=== PATIENT | female | born 1945 | race Caucasian/White ===

== ENCOUNTER → 2017-02-20 | Day surgery (SDC) | payer BC, MEDICARE ==
[~2017-02-20] MED LIST: ASCO100020 PO; CHOL10003 PO; CYAN10005 PO; DULO60CA6 PO; FOLI1TAB16 PO; HYDROmorphone 2 MG/ML VIAL IV PRN; IV RINGERS,LACTATED 1000ML 1,000 ML IV SCH; LEVO50TA PO; LIDOCAINE 1% PF 2 ML VIAL. ID PRN; LIDOCAINE 2% PF Vial for OR 5 ML VIAL. ONE; MAGN400T3 PO; MORPHINE SULFATE 2 MG/ML DISP.SYRIN. IV PRN; MULT-208 PO; NORT25CA PO; ONDA8TAB9 PO; ONDANSETRON PF 4 MG/2 ML VIAL. IV PRN; OXYC10TA45 PO; PITA4TAB2 PO; PROCHLORPERAZINE 10 MG/2 ML VIAL. IV PRN; PROPOFOL 40 ML IV ONE; TRAM50TA PO; fentaNYL PF VIAL 100 MCG/2 ML VIAL IV PRN
[2017-02-20 17:57] VITALS: BP 120/76
--- NOTE | 2017-02-21 00:20 | HP ---
ADMIT DATE: 02/20/2017 REASON FOR FOLLOWUP: History of colon polyps and a positive Cologuard test. HISTORY OF PRESENT ILLNESS: This is a 71-year-old female with past medical history significant for hypothyroidism, hypertension, history of colonic polyps as well as recently treated lung cancer with chemoradiation and surgery, who is seen for interval colonoscopy. Cologuard was positive. She denies any change in bowel habits, any bleeding, diarrhea or constipation. Weight and appetite have been stable. She has, otherwise, no additional complaints and family history is unrevealing for colon cancer. PAST MEDICAL HISTORY: Hypothyroidism, lung cancer, hypertension, history of colonic polyps as well as hyperlipidemia. MEDICATIONS: Include ascorbic acid, vitamin D, vitamin B12, levothyroxine, magnesium, multivitamin and Livalo. FAMILY AND SOCIAL HISTORY: Former smoker, not a drinker. PAST SURGICAL HISTORY: Status post appendectomy, hysterectomy and partial lobectomy. REVIEW OF SYSTEMS: Per records. PHYSICAL EXAMINATION: GENERAL: Reveals a well-nourished, well-developed female. VITAL SIGNS: Temperature is 97.9, pulse 95 and respiratory rate 20. HEENT EXAMINATION: Normocephalic and atraumatic head. Pupils and extraocular movements are not tested. Sclerae anicteric. NECK: Supple. LUNGS: Clear. CARDIOVASCULAR EXAMINATION: Reveals S1, S2, without S3, S4 or appreciable murmur. ABDOMEN: Exam reveals soft abdomen, normal bowel sounds, without appreciable splenomegaly. EXTREMITIES: Exam reveals no cyanosis, clubbing or edema. IMPRESSION: History of colon polyps. Surveillance exam with positive Cologuard is recommended at this time. Risks and benefits of the procedure including risk of hemorrhage or perforation have been discussed with the patient who is willing to proceed. ROC NEFF MD DR: ANTHONY/andressa JOB#: [id number] / [id number]
--- NOTE | 2017-02-23 15:00 | PATHOLOGY ---
PATHOLOGY REPORT * * * * * * * * FINAL DIAGNOSIS: Colon biopsy, ascending colon polyp: - Hyperplastic polyp. - Two hyperplastic mucosal-associated lymphoid aggregates. COMMENT: There are no adenomatous changes or evidence of malignancy. (JPM:pit; 02/23/2017) REPORT ELECTRONICALLY SIGNED BY: Sajan Dumont M.D. DATE/TIME: 02/23/2017 14:59 * * * * * * * * GROSS PATHOLOGY: Received in formalin labeled "Alexa Mcfarland, ascending colon," are 2 segments of samuel soft tissue measuring 0.6 x 0.7 x 0.3 cm in aggregate dimensions and ranging from 0.5 to 0.6 cm in maximum dimension. The specimen is submitted entirely in cassette A1. (TSD; 02/21/2017) INITIAL CPT CODE(S): A; 17627 Professional services performed [place] [facility] [address] Technical services performed by [facility] at [address] [place] [address], [place] [address] [address]. SPECIMEN(S) RECEIVED: A.Ascending colon polyp CLINICAL HISTORY: History of colon polyps PATIENT: ALEXA MCFARLAND /AGE: 306/06/1945 (Age: 71) PATIENT #: [id number] ALT CASE #: SPECIMEN COLLECTION DATE: 02/20/2017 SPECIMEN RECEIVED DATE: 02/21/2017 [facility] - [address] [place] [address] - PHONE: [phone] * * * END OF REPORT * * *
== END ==
LOC: ENDOS 15:29
PROVIDERS: ATTEND Internal Medicine Gastroenterology
DX: Z86.010 Personal history of colon polyps (principal); K63.5 Polyp of colon; K64.0 First degree hemorrhoids; I10 Essential (primary) hypertension; E03.9 Hypothyroidism, unspecified; E78.5 Hyperlipidemia, unspecified; Z87.891 Personal history of nicotine dependence; Z90.49 Acquired absence of other specified parts of digestive tract; Z90.710 Acquired absence of both cervix and uterus; Z85.118 Personal history of other malignant neoplasm of bronchus and lung; Z98.890 Other specified postprocedural states
CPT/HCPCS: 45385; 88305; J2704; J2001

== ENCOUNTER 2019-01-17 06:53 | Outpatient (CLI) | payer BC, MEDICARE ==
[~2019-01-17] VITALS: Ht 165.1 cm; Wt 69.9 kg
[~2019-01-17 06:53] MED LIST changes: +CYAN-25 PO; -CYAN10005 PO; -HYDROmorphone 2 MG/ML VIAL IV PRN; -IV RINGERS,LACTATED 1000ML 1,000 ML IV SCH; -LIDOCAINE 1% PF 2 ML VIAL. ID PRN; -LIDOCAINE 2% PF Vial for OR 5 ML VIAL. ONE; -MAGN400T3 PO; +MAGN400T5 PO; -MORPHINE SULFATE 2 MG/ML DISP.SYRIN. IV PRN; -ONDANSETRON PF 4 MG/2 ML VIAL. IV PRN; -OXYC10TA45 PO; +OXYC10TA46 PO; -PROCHLORPERAZINE 10 MG/2 ML VIAL. IV PRN; -PROPOFOL 40 ML IV ONE; -fentaNYL PF VIAL 100 MCG/2 ML VIAL IV PRN
[2019-01-17 07:28] LABS: BASO % 0 % (0-3); EOS # 0.1 x10^3/uL (0.0-0.7); EOS % 3 % (0-3); HEMATOCRIT 38.5 % (36.0-47.0); HEMOGLOBIN 12.8 g/dL (12.0-15.5); LYMPH % 20 % (24-48); MEAN CORPUSCULAR HEMOGLOBIN 28 pg (25-35); MEAN CORPUSCULAR HGB CONC 33 g/dL (31-37); MEAN CORPUSCULAR VOLUME 85 fL (79-100); MONO # 0.5 x10^3/uL (0.0-1.1); MONO % 12 % (0-9); NEUT # 3.1 x10^3/uL (1.8-7.7); NEUT % 66 % (31-73); PLATELET COUNT 243 x10^3/uL (140-400); RED BLOOD COUNT 4.51 x10^6/uL (3.50-5.40); RED CELL DISTRIBUTION WIDTH 13.6 % (11.5-14.5); WHITE BLOOD COUNT 4.7 x10^3/uL (4.0-11.0)
[2019-01-17 07:35] LABS: CALCIUM 9.1 mg/dL (8.5-10.1); CREATININE 1.1 mg/dL (0.6-1.0); POTASSIUM 3.8 mmol/L (3.5-5.1)
[2019-01-17 07:41] VITALS: BP 126/71
[2019-01-17 07:41] LABS: PROTHROMBIN TIME PATIENT 12.1 SEC (11.7-14.0)
[2019-01-17] MEDS ORDERED: LIDOCAINE 1%/EPI 1:100,000 20 ML VIAL. ONE (08:20)
[2019-01-17] MEDS ORDERED: MIDAZOLAM HCL/PF 2 MG/2 ML VIAL. ONE (08:30)
[2019-01-17] MEDS ORDERED: fentaNYL PF VIAL 100 MCG/2 ML VIAL ONE (08:31)
[2019-01-17 08:58] VITALS: BP 110/65
[2019-01-17] MEDS ORDERED: LIDOCAINE 1%/EPI 1:100,000 20 ML VIAL. SQ ONE (09:00)
[2019-01-17] MEDS ORDERED: MIDAZOLAM HCL/PF 2 MG/2 ML VIAL. IV ONE (09:00)
[2019-01-17] MEDS ORDERED: fentaNYL PF VIAL 100 MCG/2 ML VIAL IV ONE (09:00)
[2019-01-17 09:16] VITALS: BP 149/83
[2019-01-17 09:31] VITALS: BP 134/77
[2019-01-17 09:46] VITALS: BP 141/86
[2019-01-17 10:01] VITALS: BP 132/78
--- NOTE | 2019-01-17 10:20 | RAD ---
Procedure: Ultrasound and fluoroscopically guided placement of right internal jugular power port.. 01/17/2019 8:16 AM Clinical Indication: LUNG CA LEFT UPPER LOBE Sedation: Conscious sedation was administered for 30 minutes. The patient was monitored by a qualified independent observer throughout the time of sedation. Please refer to the medical record for exact doses of medications utilized to achieve moderate sedation. Fluoroscopy time: 1.2 minutes Dose area product: 1 Gycm2 Consent: The procedure was explained in its entirety to the patient or the patients designated self pay representative by a member of the treatment team, including a discussion of the risks, benefits and commonly accepted alternatives to the procedure, as well as the expected consequences of no therapy whatsoever. Discussion of the risks included, but was not limited to, those that are most frequent and those that are rare but possibly severe or life-threatening, as well as the possibility of unforeseen complications. Technique and Findings: All elements of maximal sterile barrier technique including the use of a cap, mask, sterile gown, sterile gloves, large sterile sheet, appropriate hand hygiene, and 2% chlorhexidine for cutaneous antisepsis (or acceptable alternative antiseptic per current guidelines) were followed for this procedure. Following informed consent, and a timeout procedure, the patient was prepped and draped in the usual sterile fashion. Ultrasound interrogation of the right neck revealed patency and compressibility of the right internal jugular vein. A 21-gauge micropuncture was then used to gain access to this vein under ultrasound guidance. A hard copy ultrasound image was recorded. The needle was exchanged over a wire for a sheath. A 1 inch incision was made several centimeters inferior to the venotomy site. A catheter was tunneled from this site dermatotomy site in the neck. Catheter was advanced through peel-away sheath such that its tip was in the proximal right atrium with the patient supine. The catheter was trimmed to length and connected to the port reservoir. The port was found to flush and aspirate normally. The wound was closed in layers using 4-0 Vicryl suture. Sterile dressings were applied. Impression: Successful ultrasound and fluoroscopically guided placement of a right internal jugular PowerPort
--- NOTE | 2019-01-17 10:24 | NUR ---
Discharge Note: GIANA MCFARLAND Discharge instructions and discharge home medications reviewed with Patient and a copy given. All questions have been answered and understanding verbalized. The following instructions and handouts were given: moderate sedation and implanted port Discontinued lines and drains: Peripheral IV intact. Patient discharged to Home or Self Care withSignificant Othervia Wheelchair
== END 2019-01-17 10:40 | disposition home or self-care (01) ==
LOC: INTRAD 06:53
PROVIDERS: ATTEND Internal Medicine Hematology & Oncology
DX: Z45.2 Encounter for adjustment and management of vascular access device (principal); Z79.01 Long term (current) use of anticoagulants; C34.12 Malignant neoplasm of upper lobe, left bronchus or lung
CPT/HCPCS: 36415; 36561; 76937; 77001; 80048; 85025; 85610; 85730; 99152; 99153; C1751; C1892; J0696; J2250; J3010; J3490

== ENCOUNTER 2019-04-28 06:57 | Outpatient (CLI) | payer BC ==
[~2019-04-28] VITALS: Ht 165.1 cm; Wt 70.8 kg
[2019-04-28 07:25] VITALS: BP 112/81
[2019-04-28 07:42] LABS: BASO % 1 % (0-3); EOS # 0.1 x10^3/uL (0.0-0.7); EOS % 2 % (0-3); HEMATOCRIT 32.8 % (36.0-47.0); LYMPH # 0.9 x10^3/uL (1.0-4.8); LYMPH % 26 % (24-48); MEAN CORPUSCULAR HEMOGLOBIN 32 pg (25-35); MEAN CORPUSCULAR HGB CONC 34 g/dL (31-37); MEAN CORPUSCULAR VOLUME 96 fL (79-100); MONO # 0.6 x10^3/uL (0.0-1.1); MONO % 16 % (0-9); NEUT # 1.9 x10^3/uL (1.8-7.7); NEUT % 56 % (31-73); PLATELET COUNT 286 x10^3/uL (140-400); RED BLOOD COUNT 3.42 x10^6/uL (3.50-5.40); RED CELL DISTRIBUTION WIDTH 20.5 % (11.5-14.5); WHITE BLOOD COUNT 3.5 x10^3/uL (4.0-11.0)
[2019-04-28 07:52] LABS: PROTHROMBIN TIME PATIENT 12.2 SEC (11.7-14.0)
[2019-04-28] MEDS ORDERED: DULO60CA6 PO (07:54)
[2019-04-28] MEDS ORDERED: CIDE300T PO (07:54)
[2019-04-28] MEDS ORDERED: NORT25CA PO (07:54)
[2019-04-28] MEDS ORDERED: LIDOCAINE 1%/EPI 1:100,000 20 ML VIAL. ONE (08:23)
[2019-04-28] MEDS: LIDOCAINE 1%/EPI 1:100,000 20 ML VIAL. INJ ONE ×2 (08:45→08:49)
[2019-04-28 08:50] VITALS: BP 144/87
[2019-04-28 09:10] VITALS: BP 140/83
--- NOTE | 2019-04-28 09:35 | NUR ---
Discharge Note: LONDON MCFARLAND Discharge instructions and discharge home medications reviewed with Patient and a copy given. All questions have been answered and understanding verbalized. No sedation for this procedure. Patient drank coffee with no issues. The following instructions and handouts were given: Surgical Site infection. Discontinued lines and drains: No IV this visit. Patient discharged to home with significant other ambulating to private vehicle.
[2019-04-28 10:21] LABS: PLT ESTIMATE ADEQUATE (ADEQUATE)
[2019-04-28 10:22] LABS: ANISOCYTOSIS MOD
--- NOTE | 2019-04-28 10:55 | RAD ---
04/28/2019 8:50 AM Removal of right internal jugular PowerPort Indication: No longer requires chemotherapy access Discussion: The risks and benefits of the procedure were discussed the patient. Informed consent was obtained. A timeout procedure was performed. The right chest was prepped and draped using maximum sterile barrier technique. All elements of maximal sterile barrier technique including the use of a cap, mask, sterile gown, sterile gloves, large sterile sheet, appropriate hand hygiene, and 2% chlorhexidine for cutaneous antisepsis (or acceptable alternative antiseptic per current guidelines) were followed for this procedure. Fluoroscopic imaging demonstrates normal position of the port. 1% lidocaine was administered for local anesthesia. Small incision was made overlying the reservoir. The reservoir and catheter were removed intact petrous confirmed under fluoroscopy. The wound was closed in layers using 2-0 Vicryl suture. A sterile dressing was applied. No immediate complications were identified. Fluoroscopy time: 0.1 minutes Dose area product:0.2 Gycm2 Impression: Removal of right internal jugular PowerPort
== END 2019-04-28 09:20 | disposition home or self-care (01) ==
LOC: INTRAD 06:57
PROVIDERS: ATTEND Internal Medicine Hematology & Oncology
DX: Z45.2 Encounter for adjustment and management of vascular access device (principal); C34.12 Malignant neoplasm of upper lobe, left bronchus or lung; Z88.8 Allergy status to other drugs, medicaments and biological substances; Z79.01 Long term (current) use of anticoagulants
CPT/HCPCS: 36415; 36590; 77001; 85025; 85610; J3490